=== PATIENT | male | born 1975 | race Two or more races ===

== ENCOUNTER 2024-03-05 01:05 | Inpatient (IN) | payer MEDICAID ==
[~2024-03-05] VITALS: Ht 182.9 cm; Wt 105.1 kg
[2024-03-05] VITALS (8 sets, daily range): BP systolic 135–192; BP diastolic 75–140; PULSE 83–116; RESP 16–20; TEMP 97.4–98.7; O2SAT 92–99
[2024-03-05] MEDS ORDERED: CALCIUM CARB 500 MG CHEW TAB PO PRN (04:15)
[2024-03-05] MEDS ORDERED: ONDANSETRON HCL 4 MG/2 ML VIAL IV PRN (04:15)
[2024-03-05] MEDS ORDERED: MELATONIN 5 MG TAB PO PRN (04:15)
[2024-03-05] MEDS ORDERED: SENNA 8.6 MG TAB PO PRN (04:15)
[2024-03-05] MEDS ORDERED: MILK OF MAGNESIA 30ML SUSP PO PRN (04:15)
[2024-03-05] MEDS ORDERED: POLYETHYLENE GLYCOL 17 GM PWDR PO PRN (04:15)
[2024-03-05] MEDS ORDERED: VANCOMYCIN PER PHARMACY 0 MG IV SCH (04:15)
[2024-03-05] MEDS ORDERED: DEXTROSE (50%) 50ML SYRG IV PRN ×2 (04:15→15:30)
[2024-03-05] MEDS ORDERED: BISACODYL 10 MG RECT SUPP PR PRN (04:15)
[2024-03-05] MEDS ORDERED: metFORMIN HYDROCHLORIDE 500 MG TAB PO SCH (06:00)
[2024-03-05] MEDS: BACLOFEN 10 MG TAB PO SCH (06:00)
[2024-03-05] MEDS: GLIMEPIRIDE 2 MG TAB PO SCH (07:00)
[2024-03-05] MEDS ORDERED: INSULIN LANTUS (GLARGINE) 1 /0.01ml (100units/ml) SC SCH (07:00)
[2024-03-05] MEDS: VANCOMYCIN 1GM/200ML 200 ML IV SCH ×2 (07:00→23:22)
[2024-03-05] MEDS: D5W/SOD CHL 0.45% 1,000 ML IV SCH (09:50)
[2024-03-05] MEDS: LOSARTAN POTASSIUM 50 MG TAB PO SCH (10:00)
[2024-03-05] MEDS: ENOXAPARIN SOD 40 MG/0.4 ML SYRINGE SC SCH (10:00)
[2024-03-05] MEDS: GABAPENTIN 300 MG CAP PO SCH (10:00)
[2024-03-05] MEDS: FAMOTIDINE 20 MG TAB PO SCH (10:00)
[2024-03-05] MEDS: amLODIPine BESYLATE 5 MG TAB PO SCH (10:00)
[2024-03-05] MEDS: LIDOCAINE 5% TOPICAL PATCH TOP SCH (10:00)
[2024-03-05] MEDS: THIAMINE 100mg/ml INJ (200mg/2ml VIAL) IV SCH (10:54)
[2024-03-05] MEDS: MAGNESIUM SULFATE 1GM/100ML 100 ML IV SCH (11:01)
[2024-03-05] MEDS: hydrALAZINE HCL 20 MG/ML VL IV PRN (11:14)
[2024-03-05] MEDS ORDERED: NITROGLYCERIN 0.4 MG SL TAB SL PRN (13:30)
[2024-03-05] MEDS ORDERED: MORPHINE SULFATE INJ 2 MG/ml SYRG IV PRN (13:30)
[2024-03-05 17:00] LABS: Basophils # (auto) 0 10 ^3/uL (0-0.2); Basophils % (auto) 0.4 % (0.0-2.0); Eosinophils # (auto) 0 10 ^3/uL (0-0.8); Eosinophils % (auto) 0.2 % (0.0-7.0); Hematocrit 45.3 % (41.0-53.0); Hemoglobin 15.6 g/dL (13.5-17.5); Lymphocytes # (auto) 1.1 10 ^3/uL (0.4-5.4); Lymphocytes % (auto) 11.1 % (10.0-50.0); Mean Corpuscular Hemoglobin 32.4 pg (28.0-32.0); Mean Corpuscular Hgb Conc. 34.4 g/dL (32.0-36.0); Mean Corpuscular Volume 94.2 fL (80.0-100.0); Monocytes # (auto) 0.9 10 ^3/uL (0-1.3); Monocytes % (auto) 9.3 % (0.0-12.0); Neutrophils # (auto) 7.6 10 ^3/uL (1.6-8.6); Platelet Count (auto) 157 10^3/uL (140-450); Red Blood Cells 4.81 10^6/uL (4.5-5.90); Red Cell Distribution Width 13.9 % (11.8-14.3); White Blood Cell 9.6 10^3/uL (4.4-10.8)
[2024-03-05 17:15] LABS: Alanine Aminotransferase 39 U/L (7-40); Albumin 4.9 g/dL (3.2-4.8); Alkaline Phosphatase 121 U/L (46-116); Anion Gap 11 (5-15); Aspartate Aminotransferase 66 U/L (13-40); BUN/Creatinine Ratio 8.9 (10.0-20.0); Bilirubin, Total 0.6 mg/dL (0.2-1.0); Blood Urea Nitrogen 11 mg/dL (9-23); Calcium 9.9 mg/dL (8.7-10.4); Carbon Dioxide 19 mmol/L (20-31); Chloride 110 mmol/L (98-107); Glucose 175 mg/dL (74-106); Potassium 4.2 mmol/L (3.5-5.1); Sodium 140 mmol/L (136-145); Total Protein 7.2 g/dL (5.7-8.2)
[2024-03-05 17:35] LABS: Platelet Estimate Adequate; RBC Morphology Normal
[2024-03-05] MEDS: TAMSULOSIN HYDROCHLORIDE 0.4 MG CAP PO SCH (18:00)
[2024-03-05] MEDS: InsuLIN REG 1unit/0.01ml Soln (100units/ml) SC SCH (18:00)
[2024-03-05] MEDS: ACCU-CHEK COMFORT CURVE STRIP VI SCH (19:04)
[2024-03-05] MEDS: hydrALAZINE HCL 20 MG/ML VL IV SCH (19:06)
[2024-03-05] MEDS: ATORVASTATIN 20 MG TAB PO SCH (22:00)
[2024-03-05] MEDS: DULoxetine HCL 30 MG CAP PO SCH (22:00)
[2024-03-05] MEDS: AMITRIPTYLINE HCL 25 MG TAB PO SCH (22:00)
[2024-03-05] MEDS: traZODone HCL 50 MG TAB PO SCH (22:00)
[2024-03-06] MEDS: TEMAZEPAM 15 MG CAP PO PRN (00:34)
[2024-03-06 01:00] VITALS: BP 144/100; PULSE 115; RESP 18; TEMP 97.9; O2SAT 97
[2024-03-06 05:00] VITALS: BP 170/98; PULSE 112; RESP 20; TEMP 98.4; O2SAT 94
[2024-03-06 08:20] LABS: Alanine Aminotransferase 33 U/L (7-40); Albumin 4.7 g/dL (3.2-4.8); Alkaline Phosphatase 118 U/L (46-116); Anion Gap 15 (5-15); Aspartate Aminotransferase 56 U/L (13-40); BUN/Creatinine Ratio 9.2 (10.0-20.0); Bilirubin, Total 0.7 mg/dL (0.2-1.0); Blood Urea Nitrogen 11 mg/dL (9-23); Calcium 9.8 mg/dL (8.7-10.4); Carbon Dioxide 16 mmol/L (20-31); Chloride 110 mmol/L (98-107); Potassium 4.3 mmol/L (3.5-5.1); Sodium 141 mmol/L (136-145); Total Protein 7.2 g/dL (5.7-8.2)
[2024-03-06 08:28] LABS: Glucose 162 mg/dL (74-106)
[2024-03-06 08:30] VITALS: PULSE 114; RESP 19; O2SAT 94
[2024-03-06 08:31] LABS: Basophils # (auto) 0 10 ^3/uL (0-0.2); Basophils % (auto) 0.3 % (0.0-2.0); Eosinophils # (auto) 0 10 ^3/uL (0-0.8); Eosinophils % (auto) 0.3 % (0.0-7.0); Hematocrit 46.7 % (41.0-53.0); Hemoglobin 15.6 g/dL (13.5-17.5); Lymphocytes # (auto) 1.4 10 ^3/uL (0.4-5.4); Lymphocytes % (auto) 11.1 % (10.0-50.0); Mean Corpuscular Hgb Conc. 33.5 g/dL (32.0-36.0); Mean Corpuscular Volume 95.6 fL (80.0-100.0); Monocytes # (auto) 1.6 10 ^3/uL (0-1.3); Monocytes % (auto) 12.5 % (0.0-12.0); Neutrophils # (auto) 9.5 10 ^3/uL (1.6-8.6); Neutrophils % (auto) 75.8 % (37.0-80.0); Nucleated Red Blood Cells % 0.1 %; Platelet Count (auto) 241 10^3/uL (140-450); Red Blood Cells 4.88 10^6/uL (4.5-5.90); Red Cell Distribution Width 14.1 % (11.8-14.3); White Blood Cell 12.6 10^3/uL (4.4-10.8)
[2024-03-06 09:00] VITALS: BP 175/102; PULSE 114; RESP 19; TEMP 98.2; O2SAT 93
[2024-03-06] MEDS: VANCOMYCIN 1GM/200ML 200 ML IV SCH (16:00)
[2024-03-06] MEDS: FOLIC ACID 1 MG in D5W 5% 50 ML INJ SCH (17:28)
[2024-03-06 20:00] VITALS: PULSE 112; RESP 20; O2SAT 95
[2024-03-06] MEDS: ACETAMINOPHEN 325 MG TAB PO PRN (22:52)
[2024-03-06 23:07] VITALS: BP 163/103; PULSE 112; RESP 20; TEMP 98; O2SAT 95
[2024-03-07] VITALS (8 sets, daily range): BP systolic 151–177; BP diastolic 100–109; PULSE 90–118; RESP 16–20; TEMP 97.9–99.9; O2SAT 94–96
[2024-03-07] MEDS: VANCOMYCIN 1GM/200ML 200 ML IV SCH (02:28)
[2024-03-07 07:21] LABS: Basophils # (auto) 0.1 10 ^3/uL (0-0.2); Basophils % (auto) 0.6 % (0.0-2.0); Eosinophils # (auto) 0.1 10 ^3/uL (0-0.8); Eosinophils % (auto) 0.4 % (0.0-7.0); Hematocrit 44.4 % (41.0-53.0); Hemoglobin 15.2 g/dL (13.5-17.5); Lymphocytes # (auto) 1.5 10 ^3/uL (0.4-5.4); Lymphocytes % (auto) 11.6 % (10.0-50.0); Mean Corpuscular Hemoglobin 32.1 pg (28.0-32.0); Mean Corpuscular Hgb Conc. 34.2 g/dL (32.0-36.0); Mean Corpuscular Volume 93.7 fL (80.0-100.0); Monocytes # (auto) 1.4 10 ^3/uL (0-1.3); Monocytes % (auto) 11.1 % (0.0-12.0); Neutrophils # (auto) 9.6 10 ^3/uL (1.6-8.6); Neutrophils % (auto) 76.3 % (37.0-80.0); Platelet Count (auto) 259 10^3/uL (140-450); Red Blood Cells 4.74 10^6/uL (4.5-5.90); Red Cell Distribution Width 14.1 % (11.8-14.3); White Blood Cell 12.6 10^3/uL (4.4-10.8)
[2024-03-07] MEDS: METOPROLOL TARTRATE 1MG/1ML-5ML VIAL IV ONE (13:31)
[2024-03-07 23:11] LABS: Urine Bacteria None Seen /hpf (None Seen)
[2024-03-07 23:27] LABS: Amphetamine Screen, Urine Neg (NEGATIVE); Barbiturate Scree,Urine Neg (NEGATIVE); Benzodiazephine Screen, Urine Neg (NEGATIVE); Cocaine Screen, Urine Neg (NEGATIVE); Opiate Scree,Urine Neg (NEGATIVE); Phencyclidine Screen, Urine Neg (NEGATIVE)
[2024-03-07 23:28] LABS: Cannabinoid Screen, Urine Neg (NEGATIVE); Urine Blood 2+ /uL (Negative); Urine Clarity Turbid (Clear); Urine Color Light-Yellow (Yellow); Urine Mucus FEW (None Seen); Urine Protein, UAD 1+ (Negative); Urine Specific Gravity 1.023 (1.001-1.035); Urine Urobilinogen Normal (Negative); Urine WBC 4 /hpf (0 - 3)
[2024-03-07] MEDS: METOPROLOL TARTRATE 1MG/1ML-5ML VIAL IV PRN (23:29)
[2024-03-08] VITALS (8 sets, daily range): BP systolic 102–132; BP diastolic 57–80; PULSE 75–101; RESP 17–20; TEMP 97.6–98.4; O2SAT 93–95
[2024-03-08 07:14] LABS: Basophils # (auto) 0.1 10 ^3/uL (0-0.2); Basophils % (auto) 0.8 % (0.0-2.0); Eosinophils # (auto) 0.2 10 ^3/uL (0-0.8); Eosinophils % (auto) 1.5 % (0.0-7.0); Hematocrit 43.2 % (41.0-53.0); Hemoglobin 14.3 g/dL (13.5-17.5); Lymphocytes # (auto) 2.8 10 ^3/uL (0.4-5.4); Lymphocytes % (auto) 25.3 % (10.0-50.0); Mean Corpuscular Hemoglobin 31.7 pg (28.0-32.0); Mean Corpuscular Volume 96.1 fL (80.0-100.0); Monocytes # (auto) 1.4 10 ^3/uL (0-1.3); Monocytes % (auto) 12.9 % (0.0-12.0); Neutrophils # (auto) 6.6 10 ^3/uL (1.6-8.6); Neutrophils % (auto) 59.5 % (37.0-80.0); Nucleated Red Blood Cells % 0.1 %; Platelet Count (auto) 227 10^3/uL (140-450); Red Cell Distribution Width 14.2 % (11.8-14.3)
[2024-03-08] MEDS: LORazepam 2MG/ML-1ML VIAL IV PRN (16:23)
[2024-03-09 01:00] VITALS: BP 105/64; PULSE 96; RESP 18; O2SAT 95
[2024-03-09 05:00] VITALS: BP 127/82; PULSE 97; RESP 18; TEMP 96.6; O2SAT 95
[2024-03-09 07:42] LABS: Basophils # (auto) 0.1 10 ^3/uL (0-0.2); Basophils % (auto) 0.6 % (0.0-2.0); Eosinophils # (auto) 0.2 10 ^3/uL (0-0.8); Eosinophils % (auto) 2.5 % (0.0-7.0); Hematocrit 43.9 % (41.0-53.0); Hemoglobin 14.4 g/dL (13.5-17.5); Lymphocytes # (auto) 2.2 10 ^3/uL (0.4-5.4); Lymphocytes % (auto) 24.8 % (10.0-50.0); Mean Corpuscular Hemoglobin 32.4 pg (28.0-32.0); Mean Corpuscular Hgb Conc. 32.9 g/dL (32.0-36.0); Mean Corpuscular Volume 98.5 fL (80.0-100.0); Monocytes % (auto) 11.5 % (0.0-12.0); Neutrophils # (auto) 5.4 10 ^3/uL (1.6-8.6); Neutrophils % (auto) 60.6 % (37.0-80.0); Nucleated Red Blood Cells % 0.3 %; Platelet Count (auto) 208 10^3/uL (140-450); Red Blood Cells 4.46 10^6/uL (4.5-5.90); Red Cell Distribution Width 14.6 % (11.8-14.3); White Blood Cell 8.9 10^3/uL (4.4-10.8)
[2024-03-09 08:00] VITALS: PULSE 93
[2024-03-09 09:00] VITALS: BP 138/74; PULSE 94; RESP 18; TEMP 97.9; O2SAT 96
[2024-03-09 13:00] VITALS: BP 108/54; PULSE 105; RESP 18; TEMP 97.8; O2SAT 96
== END 2024-03-09 17:20 | disposition home or self-care (01) | DRG 816 ==
LOC: TELE-WESTW 01:05
PROVIDERS: ADMIT Specialist; ATTEND Internal Medicine
DX: T51.91XA Toxic effect of unspecified alcohol, accidental (unintentional), initial encounter (principal); G92.8 Other toxic encephalopathy; R65.10 Systemic inflammatory response syndrome (SIRS) of non-infectious origin without acute organ dysfunction; E11.22 Type 2 diabetes mellitus with diabetic chronic kidney disease; E11.65 Type 2 diabetes mellitus with hyperglycemia; E11.42 Type 2 diabetes mellitus with diabetic polyneuropathy; N18.9 Chronic kidney disease, unspecified; I12.9 Hypertensive chronic kidney disease with stage 1 through stage 4 chronic kidney disease, or unspecified chronic kidney disease; N40.0 Benign prostatic hyperplasia without lower urinary tract symptoms; E78.5 Hyperlipidemia, unspecified; Z91.81 History of falling; Z83.3 Family history of diabetes mellitus; Z82.49 Family history of ischemic heart disease and other diseases of the circulatory system; Z79.4 Long term (current) use of insulin; Z79.84 Long term (current) use of oral hypoglycemic drugs
CPT/HCPCS: 36415; 70551; 71045; 80053; 80202; 80307; 81001; 82140; 82565; 82607; 82962; 83036; 84443; 85025; 92610; 93306; 95819; 97110; 97116; 97163; 97530; G0378; J1815; J7060